=== PATIENT | male | born 1930 | race Caucasian/White ===

== ENCOUNTER → 2016-11-06 | Outpatient (CLI) | payer BC ==
[~2016-11-06] MED LIST: ACET-1311 PO; AZIT250T PO; FINA5TAB PO; GLC5 PO; LITH1TAB10 PO; MELA1CAP PO; METF1000 PO; NXM/40 PO; OXYC-57 PO; PYRI250T7 PO; WLLSR/200 PO
== END | disposition home or self-care (01) ==
LOC: C.LABFOXDH 09:02
PROVIDERS: ATTEND Urology
DX: R39.15 Urgency of urination (principal)

== ENCOUNTER → 2016-12-19 | Outpatient (CLI) | payer BC ==
[2016-12-19 09:17] LABS: BLOOD UREA NITROGEN 11 mg/dl (7-18); BUN/CREATININE RATIO 13.1 (10-20); CALCIUM 8.5 mg/dl (8.5-10.1); CARBON DIOXIDE 27 mmol/L (21-32); CHLORIDE 106 mmol/L (98-107); GLUCOSE 185 mg/dl (70-99); POTASSIUM 3.7 mmol/L (3.5-5.1); SODIUM 139 mmol/L (136-145)
[2016-12-19 09:43] LABS: BASO % 0.3 %; BASO ABS # 0.02 K/uL (0-0.2); COMPLETE YES; EOS % 3.8 %; HEMATOCRIT 38.8 % (42-52); IG% 0.1 %; LYMPH % 14.5 %; LYMPH ABS # 1.07 K/uL (1.2-3.4); MEAN CELL VOLUME 90.4 fL (80-100); MEAN CORPUSCULAR HGB CONC 34.3 g/dl (32-36); MEAN PLATELET VOLUME 9.7 fL (7.4-10.4); MONO % 10.7 %; NEUT % 70.6 %; PLATELET COUNT 185 K/uL (130-400); RED BLOOD COUNT 4.29 M/uL (4.7-6.1); WHITE BLOOD COUNT 7.38 K/uL (4.8-10.8)
[2016-12-19 09:46] LABS: ESTIMATED AVERAGE GLUCOSE 151 mg/dl; HA1C FLAG Normal (Normal)
== END | disposition home or self-care (01) ==
LOC: C.LABFOXDH 08:48
PROVIDERS: ATTEND Internal Medicine
DX: E11.9 Type 2 diabetes mellitus without complications (principal); M54.5 Low back pain

== ENCOUNTER → 2017-01-14 | Outpatient (CLI) | payer BC | END | disposition home or self-care (01) | LOC: C.LABFOXMH 09:56 | PROVIDERS: ATTEND Nurse Practitioner Family | DX: R25.1 Tremor, unspecified (principal) ==

== ENCOUNTER → 2017-02-07 | Outpatient (CLI) | payer BC | END | disposition home or self-care (01) | LOC: C.LABSPEC 16:06 | PROVIDERS: ATTEND Dermatology | DX: B35.1 Tinea unguium (principal) ==

== ENCOUNTER → 2017-03-11 | Outpatient (CLI) | payer BC ==
[2017-03-11 10:40] LABS: BLOOD UREA NITROGEN 10 mg/dl (7-18); CREATININE 0.79 mg/dl (0.60-1.40)
== END ==
LOC: C.LABFOXMH 08:28
PROVIDERS: ATTEND Urology
DX: C61 Malignant neoplasm of prostate (principal)

== ENCOUNTER → 2017-03-22 | Outpatient (CLI) | payer BC ==
[2017-03-22 09:41] LABS: MEAN CELL VOLUME 92.8 fL (80-100); MEAN CORPUSCULAR HEMOGLOBIN 31.2 pg (25-34); MEAN CORPUSCULAR HGB CONC 33.7 g/dl (32-36); MEAN PLATELET VOLUME 9.6 fL (7.4-10.4); PLATELET COUNT 211 K/uL (130-400); RED BLOOD COUNT 4.42 M/uL (4.7-6.1); WHITE BLOOD COUNT 6.45 K/uL (4.8-10.8)
[2017-03-22 09:49] LABS: ALT/SGPT 22 U/L (12-78); BLOOD UREA NITROGEN 8 mg/dl (7-18); BUN/CREATININE RATIO 10.5 (10-20); CALCIUM 8.7 mg/dl (8.5-10.1); CARBON DIOXIDE 27 mmol/L (21-32); CHLORIDE 109 mmol/L (98-107); CREATININE 0.76 mg/dl (0.60-1.40); GLUCOSE 121 mg/dl (70-99); SODIUM 145 mmol/L (136-145)
[2017-03-22 09:59] LABS: ALB/GLOB RATIO 1.2 (0.9-2); ALKALINE PHOSPHATASE 47 U/L (45-117); AST/SGOT 11 U/L (15-37)
[2017-03-22 10:22] LABS: ESTIMATED AVERAGE GLUCOSE 143 mg/dl; HA1C FLAG Normal (Normal)
== END | disposition home or self-care (01) ==
LOC: C.LABFOXMH 08:47
PROVIDERS: ATTEND Internal Medicine
DX: R41.2 Retrograde amnesia (principal); E11.9 Type 2 diabetes mellitus without complications

== ENCOUNTER → 2017-04-09 | Outpatient (CLI) | payer BC ==
[~2017-04-09] MED LIST changes: -AZIT250T PO
[2017-04-12 13:54] LABS: HERPES SIMPLEX CULT SOURCE RESPIRATORY-MOUTH; HERPES SIMPLEX VIRUS CULT NOT ISOLATED (NOT ISOLATED)
== END | disposition home or self-care (01) ==
LOC: C.LABSPEC 14:34
PROVIDERS: ATTEND Dermatology
DX: B37.9 Candidiasis, unspecified (principal); K12.1 Other forms of stomatitis

== ENCOUNTER → 2017-09-18 | Outpatient (CLI) | payer BC ==
[2017-09-18 10:11] LABS: ESTIMATED AVERAGE GLUCOSE 157 mg/dl; HA1C FLAG Normal (Normal)
== END ==
LOC: C.LABFOXMH 07:53
PROVIDERS: ATTEND Internal Medicine Hospice and Palliative Medicine
DX: E11.9 Type 2 diabetes mellitus without complications (principal)

== ENCOUNTER → 2017-09-19 | Outpatient (CLI) | payer BC | END | disposition home or self-care (01) | LOC: C.PATHSPEC 17:43 | PROVIDERS: ATTEND Dermatology | DX: C44.629 Squamous cell carcinoma of skin of left upper limb, including shoulder (principal) ==

== ENCOUNTER → 2017-12-06 | Outpatient (CLI) | payer BC ==
[2017-12-06 08:33] LABS: BLOOD UREA NITROGEN 12 mg/dl (7-18); CREATININE 0.85 mg/dl (0.60-1.40)
== END | disposition home or self-care (01) ==
LOC: C.LABFOXMH 07:48
PROVIDERS: ATTEND Urology
DX: N40.1 Benign prostatic hyperplasia with lower urinary tract symptoms (principal); R39.15 Urgency of urination; R39.198 Other difficulties with micturition; R35.0 Frequency of micturition; C61 Malignant neoplasm of prostate; R97.20 Elevated prostate specific antigen [PSA]

== ENCOUNTER → 2017-12-18 | Outpatient (CLI) | payer BC ==
[2017-12-18 09:38] LABS: BLOOD UREA NITROGEN 11 mg/dl (7-18); CALCIUM 8.7 mg/dl (8.5-10.1); CARBON DIOXIDE 23 mmol/L (21-32); CREATININE 0.95 mg/dl (0.60-1.40); GLUCOSE 181 mg/dl (70-99); POTASSIUM 3.9 mmol/L (3.5-5.1); SODIUM 139 mmol/L (136-145)
[2017-12-18 09:44] LABS: HEMOGLOBIN A1C 7.9 % (4.5-5.6)
== END ==
LOC: C.LABFOXMH 09:09
PROVIDERS: ATTEND Internal Medicine Hospice and Palliative Medicine
DX: E11.9 Type 2 diabetes mellitus without complications (principal); Z79.01 Long term (current) use of anticoagulants

== ENCOUNTER → 2018-04-18 | Outpatient (CLI) | payer BC ==
[~2018-04-18] MED LIST changes: -ACET-1311 PO; +ALPH600C2 PO; +B-COTAB18 PO; -GLC5 PO; +GLIP10TA10 PO; +LANS30CA63 PO; +LORA-741 PO; -MELA1CAP PO; +METF-841 PO; -METF1000 PO; -NXM/40 PO; +PREG1CAP36 PO; -PYRI250T7 PO; -WLLSR/200 PO; +WLLSR150 PO
[2018-04-18 15:57] LABS: BLOOD UREA NITROGEN 10 mg/dl (7-18); CALCIUM 8.6 mg/dl (8.5-10.1); CARBON DIOXIDE 23 mmol/L (21-32); CREATININE 0.88 mg/dl (0.60-1.40); GLUCOSE 208 mg/dl (70-99); POTASSIUM 3.9 mmol/L (3.5-5.1); SODIUM 137 mmol/L (136-145)
== END | disposition home or self-care (01) ==
LOC: C.LABFOXMH 15:30
PROVIDERS: ATTEND Nurse Practitioner Family
DX: R53.1 Weakness (principal); R29.6 Repeated falls